=== PATIENT | female | born 1985 | race Caucasian/White ===

== ENCOUNTER 2024-11-09 09:03 | Outpatient (CLI) | payer BC, SELFPAY | END 2024-11-09 09:04 | disposition home or self-care (01) | DX: R10.13 Epigastric pain (principal) | CPT/HCPCS: 80053; 86140 ==

== ENCOUNTER 2024-11-11 01:49 | Emergency (ER) | payer BC, SELFPAY ==
--- OUTSIDE RECORDS SUMMARY | 2024-11-11 01:51 | XMS_ITS | Clinical Summary ---
Author Organization [facility] Address [address] [place] [id number] Care Team Providers Care Mineralogy Teacher Name Role Phone Pcp, No Primary Care Provider Unavailabl e Allergies Active Allergy Reactions Criticality Noted Date Comments Nickel Rash Low 02/11/2018 Medications meclizine (ANTIVERT) 25 mg tabletIndication s:Dizziness Take 1 tablet by mouth 3 times daily if needed for Vertigo. 30 tablet 02/11/2018 Active penicillin v potassium (PEN-VEE K) 500 mg tablet TAKE 1 TABLET BY MOUTH TWICE DAILY FOR 10 DAYS 11/08/2021 Active benzonatate (TESSALON) 200 mg capsuleIndicatio ns:Cough, unspecified type Take 1 Capsule (200 mg) by mouth 3 times daily if needed for Cough. 21 Capsule 11/17/2021 Active Active Problems No known active problems Family History Medical History Relation Name Comments Diabetes Mother Heart failure Mother Thyroid Disease Mother Cancer-breast Paternal Grandmother Stroke Paternal Grandmother Relation Name Status Comments Mother Paternal Grandmother Social History Tobacco Use Types Packs/Day Years Used Date Smoking Tobacco: Never Smokeless Tobacco: Never Alcohol Use Standard Drinks/Week Comments Yes 0 (1 standard drink = 0.6 oz pur e alcohol) occasionally Comments No Sex and Gender Information Value Date Recorded Sex Assigned at Not on file Legal Sex Female 5:23 AM WEEKEND CAREGIVER Gender Identity Not on file Sexual Orientation Not on file Obstetrics History Last Filed Vital Signs Vital Sign Reading Time Taken Comments Blood Pressure 118/64 11/17/2021 9:19 AM CDT Pulse 88 11/17/2021 9:19 AM CDT Temperature 36.8 C (98.2 F) 11/17/2021 9:19 AM CDT Respiratory Rate 18 11/17/2021 9:19 AM CDT Oxygen Saturation 99% 11/17/2021 9:19 AM CDT Inhaled Oxygen Concentration - - Weight 70.8 kg (156 lb) 11/17/2021 9:19 AM CDT Height 160 cm (5' 3) 03/22/2018 9:42 AM WEEKEND CAREGIVER Body Mass Index 27.63 03/22/2018 9:42 AM WEEKEND CAREGIVER Plan of Treatment Health Maintenance Due Date Last Done Comments Tetanus booster 09/28/1994 Depression screening for age 12+ 1995 HIV for age 15-65 09/28/1998 Hepatitis C screening for ag e 18-79 09/28/2001 Hepatitis B series for 19+ ( 1 of 3 - 19+ 3-dose series) 09/28/2002 Pap test for age 21-65 09/28/2004 HPV series for age 9-45 (1 - 3-dose SCDM series) 09/28/2010 BMI (ht and wt on same day) for age 18+ 03/22/2019 03/22/2018, 02/11/2018 COVID-19 vaccine series ( season) 2024 Influenza Vaccine (#1) 2024 RSV vaccine for adults or (1 - 1-dose 75+ series) 09/28/2058 Pneumococcal series for age 6-49 Aged Out No longer eligible b ased on patient's age to complete this topic Insurance [facility] Care Teams Mineralogy Teacher Relationship Specialty Start Date End Date Pcp, No . PCP - General 02/11/18
[2024-11-11 02:04] VITALS: BP 126/55; PULSE 112; RESP 18; TEMP 36.4; O2SAT 98; BMI 27.5
--- NOTE | 2024-11-11 02:31 | CRLHL7_ITS ---
For Patients: As a result of the Century Cures Act, medical imaging exams and procedure reports are released immediately into your electronic medical record. You may view this report before your referring provider. If you have questions, please contact your health care provider. Indication: Epigastric pain Technique: CT through the abdomen and pelvis following 76 mL Isovue 370 IV contrast Comparison: None Findings: Lower chest: No acute abnormality appreciated. Hepatobiliary: No significant parenchymal abnormality is appreciated. Spleen: Unremarkable. Pancreas: No acute abnormality appreciated. Adrenal glands: No acute abnormality appreciated. Kidneys: No significant parenchymal abnormality appreciated. No visualized calculi. No hydronephrosis. Bowel: No obstruction. No focal perienteric or pericolonic stranding is appreciated. The appendix is visualized and appears unremarkable. Vascular: No acute abnormality appreciated. Lymph nodes: No gross lymphadenopathy. Peritoneum: No free air. No free fluid. : No acute abnormality appreciated. Soft tissues: No acute abnormality appreciated. Bones: No acute fracture. No lytic or blastic lesion. Impression: No abnormal findings appreciated to account for patient`s reported symptoms. Please note that all CT scans at this facility use dose modulation, iterative reconstruction, and/or weight-based dosing when appropriate to reduce radiation dose to as low as reasonably achievable. Dictated by Dm Phillips MD @ 11/11/2024 3:37:47 AM (Electronically Signed)
--- NOTE | 2024-11-11 02:32 | ED_ITS ---
HPI - General Adult General Chief complaint: Abdominal Pain Stated complaint: abdominal pain Time Seen by Provider: 11/11/24 01:57 Source: patient Mode of arrival: ambulatory Limitations: no limitations History of Present Illness HPI narrative: 39-year-old female presents to the emergency department in the wee hours because of abdominal pain for the past month. It has been accompanied by loose stools. She was evaluated in urgent care mainly for cough a few days ago, started on azithromycin with normal chest x-ray. She did have some blood work taken at the time reflecting negative inflammatory markers, normal CBC. Normal liver enzymes. Patient reports that the antibiotics have cleared up the cough completely. She is feeling much better. She has also been having loose stools for the past 3 weeks. Pain is mainly in the epigastric region, radiates around to the mid back slightly. No fevers. No hematemesis. No nausea. No bloody stools. Is still eating and drinking without complication but does notice that her stools are looser with greasy foods. She has tried to avoid those with some improvement. Reports that the pain is 7/10 tonight, causing her to come to the emergency room. She put herself on Pepcid 2 days ago, taking once daily. Reports no improvement yet. No history of endoscopy or colonoscopy. No prior abdominal surgeries. Did not try taking any Tylenol or ibuprofen to help with her symptoms. Denies urinary or gynecological changes. Reports benign past medical history, no long-term health problems. No known drug allergies. No prior GI or pelvic surgeries. ROS is notable for the GI symptoms and the cough as described above, cough now relieved, otherwise benign times 12 systems. Urgent care and previous labs reviewed. Related Data Previous Rx's ?Medication ?Instructions ?Recorded azithromycin 250 mg tablet See Rx Instructions PO .COM PLEX #6 11/09/24 tabs benzonatate 200 mg capsule 200 mg PO BID-TID PRN cough #30 11/09/24 caps omeprazole 20 mg tablet,delayed 20 mg PO QDAY 14 days #14 tabs 11/09/24 release Allergies Allergy/AdvReac Type Severity Reaction Status Date / Time No Known Drug Allergies Allergy Verified 11/11/24 02:07 [facility] Social History Smoking Status: Never smoker Do you use any of these nicotine containing products: None Second hand tobacco smoke exposure: No How often do you have a drink containing alcohol: monthly or less How often do you have six or more drinks on one occasion: Never AUDIT-C Alcohol total score: 1 Non-prescribed substance use: denies use service: No Exam Const: Vital Signs, click to edit/add: Vital Signs - 24 hr 11/11/24 02:04 Temperature 97.5 F L Pulse Rate [Right Pulse Oximeter] 112 H Respiratory Rate 18 Blood Pressure [Ri ght Upper Arm] 126/55 L Pulse Oximetry 98 Oxygen Delivery Me thod Room Air Documenting provider has reviewed patient's vital signs: yes Common normals: no apparent distress and alert General appearance: cooperative and well kempt Other: Appears well. Non-toxic, no pallor. HENMT: Common normals: normocephalic Head and scalp: normocephalic Face and sinus: normal facial exam Mouth: oral and palatal mucosa normal Eye: Common normals: conjunctivae normal General eye: normal appearance of both eyes Conjunctiva: conjunctiva(e) normal Neck & C-Spine: Common normals: full ROM and no lymphadenopathy Resp: Common normals: normal respiratory effort and clear to auscultation bilaterally Effort & inspection: able to speak in complete sentences Auscultation: clear to auscultation bilaterally Cardio: Common normals: regular rate, regular rhythm, S1 normal heart sound, S2 normal heart sound and no murmurs Rate: regular rate Rhythm: regular rhythm Heart sounds: S1 normal and S2 normal GI: Common normals: Normal to inspection, nondistended, normoactive bowel sounds present, soft to palpation, no hepatosplenomegaly and no masses Palpation: soft and no hepatosplenomegaly Other: Mildly tender to epigastrium. No masses. No rebound tenderness or guarding. Extremity: Common normals: normal to inspection, normal capillary refill and no pedal edema Neuro: Common normals: moves all extremities Sensorium/orientation: alert Speech: speech normal Psych: Appearance: well kempt Attitude: engaged Activity/motor behavior: appropriate eye contact Insight: insight good Judgement: judgment good Skin: Common normals: no rashes or lesions noted General skin exam: no rashes or lesions noted Course Course ED Course: 39-year-old female with epigastric pain. Differential diagnosis including gastritis, perforated ulcer, celiac disease, H pylori, biliary dyskinesia, gallstones, pancreatitis, colitis, inflammatory bowel disease, cholecystitis, irritable bowel, amongst others. Will give omeprazole, GI cocktail, 1 hydrocodone tablet and Zofran. Obtain typical intra-abdominal labs and CT of the abdomen and pelvis. Counseled patient that in the wee hours of the night and may not be able to perform all the diagnostic tests that we would typically used to work this up. She will likely need to follow-up if findings are benign for H pylori and celiac testing as well as possibly endoscopy and or HIDA scan. Patient was understanding of this. Counseled that we will only rule out emergent things overnight and there may be primary care follow-up to fully diagnose her condition. She verbalizes understanding would like to proceed with workup. Reevaluation(s) Time of Reevaluation #1: 03:52 Reevaluation #1: Patient reports that her symptoms are quite a bit better after the GI cocktail, omeprazole and hydrocodone. We discussed her normal labs and normal CT. I suspect that this is some chronic underlying gastritis. Cannot exclude H.pylori, celiac disease, biliary dyskinesia or other similar complaints. Counseled patient of the limitations of testing that I can do in the emergency room in the middle of the night she will need to make a follow-up with a primary care provider for the rest of the workup. In the meantime, she will start omeprazole 20 mg p.o. once daily for the next 4 weeks, encouraged it 30 minutes before her evening meal. Avoid alcohol in carbonated beverages. Tylenol 650 every 4 hours as needed for pain. Maalox for symptomatic control on top of the omeprazole. Would encourage endoscopy if her symptoms have not improved in 4 weeks on omeprazole. She will need to discuss this with the primary care provider. Gallbladder ultrasound if no improvement on antacids could also be considered, especially if her symptoms start to become more postprandial. Alarm symptoms reviewed that would warrant ED presentation. She verbalizes understanding and agreement. Vital Signs Vital signs: Initial Vital Signs Temperature 97.5 F L 11/11/24 02:04 Temperature Source Temporal Artery Scan 11/11/24 02:04 Pulse Rate 112 H 11/11/24 02:04 Pulse Rhythm Regular 11/11/24 02:04 Pulse Strength 3+ Normal 11/11/24 02:04 Respiratory Rate 18 11/11/24 02:04 Blood Pressure 126/55 L 11/11/24 02:04 Blood Pressure Mean 78 11/11/24 02:04 Blood Pressure Position Sitting 11/11/24 02:04 Pulse Oximetry 98 11/11/24 02:04 Oxygen Delivery Method Room Air 11/11/24 02:04 Vital Signs Temperature 97.5 F L 11/11/24 02:04 Pulse Rate 112 H 11/11/24 02:04 Respiratory Rate 18 11/11/24 02:04 Blood Pressure 126/55 L 11/11/24 02:04 Pulse Oximetry 98 11/11/24 02:04 Oxygen Delivery Method Room Air 11/11/24 02:04 Temperature 97.5 F L 11/11/24 02:04 Pulse Rate 112 H 11/11/24 02:04 Respiratory Rate 18 11/11/24 02:04 Blood Pressure 126/55 L 11/11/24 02:04 Pulse Oximetry 98 11/11/24 02:04 Oxygen Delivery Method Room Air 11/11/24 02:04 Medications Administered Medications: Generic Name Dose Route Start Last Admin Trade Name Freq PRN Reason Stop Dose Admin Hydrocodone Bitart/Acetaminophen 1 tab 11/11/24 02:27 11/11/24 02:52 Hydrocodone-Acetamin 5-325 Mg 1 Tab PO 11/11/24 02:28 1 tab ONCE ONE Administration Lidocaine/Aluminum/Magnesium/Simeth 30 ml 11/11/24 02:33 11/11/24 02:54 Gi Cocktail (Visc Lido/Antacid) 30 Ml PO 11/11/24 02:34 30 ml ONCE ONE Administration Omeprazole 20 mg 11/11/24 02:33 11/11/24 02:52 Omeprazole [address] PO 11/11/24 02:34 20 mg ONCE ONE Administration Ondansetron HCl 4 mg 11/11/24 02:27 11/11/24 03:03 Ondansetron Odt 4 Mg Tab PO 11/11/24 02:28 4 mg ONCE ONE Administration Medical Decision Making Lab Data Lab results reviewed: Yes I reviewed the patient's lab results Lab results narrative: No significant leukocytosis, anemia, electrolyte abnormality, abnormal creatinine, pancreatitis, sign of urine infection. Reassuring labs. Labs: Lab Results 11/11/24 Range/Units 02:50 WBC 5.78 (4.50-11.00) K/uL RBC 4.49 (4.00-5.20) m/uL Hgb 13.5 (12.0-16.0) gm/dL Hct 39.2 (33.0-51.0) % MCV 87 (80-100) fL MCH 30 (26-34) pg MCHC 34 (32-36) gm/dL RDW Coeff of Giovanni 12.1 (11.5-15.5) % Plt Count 333 (140-440) K/uL Neut % (Auto) 63.3 (42.0-72.0) % Lymph % (Auto) 23.5 (20-44) % [place] % (Auto) 12.3 H (0.0-11.0) % Eos % (Auto) 0.2 (0.0-7.0) % Baso % (Auto) 0.7 (0.0-3.0) % Neut # (Auto) 3.66 (1.7-7.0) K/uL Lymph # (Auto) 1.36 (0.90-2.90) K/uL [place] # (Auto) 0.70 (0.00-0.90) K/UL Eos # (Auto) 0.01 (0.00-0.50) K/uL Baso # (Auto) 0.04 (0.00-0.30) K/uL Abs Immat Gran (auto) 0.00 (0.00-0.30) K/uL Imm/Tot Granulo (auto) 0.0 % Sodium 138 (135-149) mmol/L Potassium 3.8 (3.6-5.1) mmol/L Chloride 103 (96-114) mmol/L Carbon Dioxide 24 (20-32) mmol/L Anion Gap 11 (7-15) mEq/L BUN 13 (5-24) mg/dL Creatinine 0.8 (0.5-1.5) mg/dL Estimated Creat Clear 76.55 Estimated GFR 95 ml/min Glucose 105 (60-115) mg/dL Calcium 9.2 (8.4-10.6) mg/dL Total Bilirubin 1.1 (0.1-1.5) mg/dL AST 26 (12-35) U/L ALT 20 (4-35) U/L Alkaline Phosphatase 62 (40-150) U/L C-Reactive Protein < 0.5 L (0.5-1.0) mg/dL Total Protein 8.4 H (6.0-8.3) g/dL Albumin 4.4 (3.3-5.0) g/dL Lipase 123 (23-300) U/L Urine Color Yellow (Yellow) Urine Appearance Clear (Clear) Urine pH 6.0 (5.0-8.5) Ur Specific [place] >= 1.030 (1.000-1.030) Urine Protein Trace A (Negative) Urine Glucose (UA) Negative (Negative) Urine Ketones 2+ A (Negative) Urine Blood Negative (Negative) Urine Nitrite Negative (Negative) Urine Bilirubin 1+ A (Negative) Urine Urobilinogen 0.2 (0.2-1.0) Ur Leukocyte Esterase Negative (Negative) Urine RBC 0-2 (0-2) Urine WBC 0-2 (0-5) Ur Squamous Epith Cells Few (None-Few) Amorphous Sediment Few A (None) Urine Bacteria Moderate A (None) Urine Mucus Moderate A (None) Urine HCG, Qual Negative (Negative) Imaging Data CT scan - abdomen: Attestation: I have reviewed the pertinent imaging results. My impression: Normal CT Radiologist's impression: Impression: No abnormal findings appreciated to account for patient`s reported symptoms. Please note that all CT scans at this facility use dose modulation, iterative reconstruction, and/or weight-based dosing when appropriate to reduce radiation dose to as low as reasonably achievable. Dictated by Dm Phillips MD @ 11/11/2024 3:37:47 AM Discharge Plan Discharge Clinical Impression: Gastritis Patient Disposition: Home w/ Parent or Adult Condition: Improved Instructions: Gastritis (DC), Diet for Stomach Ulcers and Gastritis (ED) Additional Instructions: I am glad that the medicines that you were given here are helping somewhat. Your labs and CT scan are completely reassuring. This does not mean that there is nothing going on, it just means that there is nothing emergent that can be detected with our limited resources in the middle of the night. With her story, the tests that I would have recommended first-line would be blood test for H pylori, a common bacterial infection that causes chronic stomach irritation and we do typically also test for celiac disease as a part of this as well. It is not uncommon that this shows up for women in middle age rather than in their youth. I want you to start taking omeprazole 20 mg daily preferably 30 minutes before your evening meal. This is a stronger antacid than the famotidine that you have been taking. Do not get rid of the famotidine, you probably be going back to and after 4 weeks as a preventative medication. If things are not improving in 4 weeks, your primary care doctor would typically refer you for an endoscopy. At this time I am not detecting any signs of gallbladder disease, gallstones or biliary dyskinesia causing her symptoms but if her symptoms fail to improve on the and acid, an ultrasound of the gallbladder can be considered also. Remember no alcohol, no carbonated beverages. Try to avoid NSAIDs and ibuprofen but it is absolutely okay to for you to use Tylenol 1000 mg every 6 hours for pain and discomfort. For as needed symptom control management, I also recommend Maalox up to every 4 hours. You will have home workup making a follow-up with a primary care provider to discuss the blood work. But in the meantime go ahead and started the omeprazole and by some Maalox also both of which are [id number] to have on hand for symptom management. Even though it is likely temporarily making your stomach a little worse, please finish your antibiotic. Remember the should come to emergency room if you have high fever, severe persistent vomiting, lots of bloody stools or other signs of severe complication. You are cleared to return to school, work or any other typical duties. Activity Level: No Restrictions Discharge Diet: Regular Prescriptions: No Action azithromycin 250 mg tablet See Rx Instructions PO .COMPLEX Qty: 6 0RF Rx Instructions: For 250 mg dose pack: take 500 mg today (day 1), then 250 mg for 4 days (days 2-5) PO benzonatate 200 mg capsule 200 mg PO BID-TID PRN (Reason: cough) Qty: 30 0RF omeprazole 20 mg tablet,delayed release (DR/EC) 20 mg PO QDAY 14 Days Qty: 14 0RF Follow Up/Referrals: Provider,Not a Local [Primary Care Provider, Family Practice] Stand Alone Forms: [employer] Info Instructions
[2024-11-11] MEDS: HYDROCODONE-ACETAMIN 5-325 MG 1 TAB PO (02:52)
[2024-11-11] MEDS: OMEPRAZOLE 20 MG CAPSULE DR PO (02:52)
[2024-11-11 02:54] LABS: Appearance Urine Clear (Clear)
[2024-11-11] MEDS: GI COCKTAIL (VISC LIDO/ANTACID) 30 ML PO (02:54)
[2024-11-11] MEDS: ONDANSETRON ODT 4 MG TAB PO (03:03)
[2024-11-11 03:05] LABS: Ur HCG Qualitative* Negative (Negative)
[2024-11-11 03:14] LABS: Hematocrit* 39.2 % (33.0-51.0); Hemoglobin* 13.5 gm/dL (12.0-16.0); Immature Granulocytes Abs Auto 0.00 K/uL (0.00-0.30); Immature Granulocytes Pct Auto 0.0 %; Lymphocytes Absolute Auto 1.36 K/uL (0.90-2.90); Mean Corpuscular HGB Conc 34 gm/dL (32-36); Mean Corpuscular Hemoglobin 30 pg (26-34); Mean Corpuscular Volume 87 fL (80-100); RDW Coefficient of Variation % 12.1 % (11.5-15.5); Red Blood Count* 4.49 m/uL (4.00-5.20); White Blood Count* 5.78 K/uL (4.50-11.00)
[2024-11-11 03:16] LABS: Slide Review Reflex No
[2024-11-11 03:26] LABS: Albumin* 4.4 g/dL (3.3-5.0); Chloride* 103 mmol/L (96-114)
[2024-11-11 03:27] LABS: Potassium* 3.8 mmol/L (3.6-5.1); Sodium* 138 mmol/L (135-149)
[2024-11-11 03:29] LABS: Blood Urea Nitrogen* 13 mg/dL (5-24); Creatinine* 0.8 mg/dL (0.5-1.5); Est. Creatinine Clearance* 76.55; Estimated Glomerular Filt Rate 95 ml/min
[2024-11-11 03:30] LABS: Alanine Aminotransferase* 20 U/L (4-35); Alkaline Phosphatase* 62 U/L (40-150); Anion Gap 11 mEq/L (7-15); Aspartate Amino Transferase* 26 U/L (12-35); Bilirubin Total* 1.1 mg/dL (0.1-1.5); Calcium* 9.2 mg/dL (8.4-10.6); Carbon Dioxide* 24 mmol/L (20-32); Glucose* 105 mg/dL (60-115); Total Protein* 8.4 g/dL (6.0-8.3)
[2024-11-11 04:16] VITALS: BP 116/70; PULSE 68; RESP 18
== END 2024-11-11 04:19 | disposition home or self-care (01) ==
PROVIDERS: Emergency Provider Family Medicine
DX: K29.70 Gastritis, unspecified, without bleeding (principal)
CPT/HCPCS: 36415; 74177; 80053; 81001; 81025; 83690; 85025; 86140; 87086; 99284; 99285; A9270; Q9967

== ENCOUNTER 2024-12-01 11:33 | Outpatient (CLI) | payer BC, SELFPAY | END 2024-12-01 11:34 | disposition home or self-care (01) | PROVIDERS: Visit Provider Family Medicine | DX: Z00.00 Encounter for general adult medical examination without abnormal findings (principal); K13.79 Other lesions of oral mucosa; K21.9 Gastro-esophageal reflux disease without esophagitis; R53.83 Other fatigue; B37.0 Candidal stomatitis; Z11.4 Encounter for screening for human immunodeficiency virus [HIV] | CPT/HCPCS: 80053; 86703; 86706; 86803; 87340 ==

== ENCOUNTER 2024-12-02 07:11 | Outpatient (CLI) | payer BC, SELFPAY | END 2024-12-02 07:12 | disposition home or self-care (01) | PROVIDERS: Visit Provider Family Medicine | DX: K13.79 Other lesions of oral mucosa (principal); K21.9 Gastro-esophageal reflux disease without esophagitis; R53.83 Other fatigue | CPT/HCPCS: 87338 ==

== ENCOUNTER 2024-12-06 10:12 | Emergency (ER) | payer BC, SELFPAY ==
--- OUTSIDE RECORDS SUMMARY | 2024-12-06 10:15 | XMS_ITS | Clinical Summary ---
Author Organization [facility] Address [address] [place] [id number] Care Team Providers Care Informatics Educator Name Role Phone Pcp, No Primary Care [...] on file Legal Sex Female 5:23 AM CARTON LINER Gender Identity Not on file Sexual Orientation [...] 160 cm (5' 3) 03/22/2018 9:42 AM CARTON LINER Body Mass Index 27.63 03/22/2018 9:42 AM CARTON LINER Plan of Treatment Health Maintenance Due Date [...] day) for age 18+ 03/22/2019 03/22/2018, 02/11/2018 Influenza Vaccine (#1) 2024 RSV vaccine for adults or (1 - 1-dose 75+ series) 09/28/2058 Pneumococcal series for age 6-49 Aged Out No longer eligible b ased on patient's age to complete this topic Insurance [facility] Care Teams Informatics Educator Relationship Specialty Start Date End Date Pcp, No . PCP - General 02/11/18
[2024-12-06 10:26] VITALS: BP 118/80; PULSE 83; RESP 18; TEMP 36.7; O2SAT 98; BMI 25.7
--- NOTE | 2024-12-06 10:48 | ED.ABDPAIN ---
HPI - Abdominal Pain General Time Seen by Provider: 10:48 Date Seen: 12/06/24 Chief Complaint: Abdominal Pain Stated Complaint: Abdominal pain, lightheaded Time Seen by Provider: 12/06/24 10:27 Source: patient and RN notes reviewed Mode of arrival: ambulatory Limitations: no limitations History of Present Illness HPI narrative: This 39-year-old female has been having ongoing gastrointestinal issues for 2 months. She was having a follow-up CBC for outpatient lab given her white count was recently mildly low and monocytes were elevated. She just felt so weak in the car, did have some diarrhea this morning. She opted to check into the ED. she has had CT imaging on November 11 with normal laboratory workup here in the ED. She did follow up with [facility], had a negative viral pathogen panel for diarrhea. She states the GI doctor thought that this may have been initiated with SIVAKUMAR, she was seen 4 weeks after the initial symptoms. She is having episodic diarrhea, gets quite weak when she has the diarrhea. She will feel lightheaded, shaky, feel like she will pass out. Her appetite is diminished, she has had a 20 lb weight loss. She was given omeprazole, admits she is not taking it. She does have increased regurgitant symptoms, will get a burning pain up in the center of her chest. She sometimes gets some sharp stabbing pain it is just under the left breast just by the epigastric area. She did do a follow-up in clinic and then a most recent 1 on December 01, did discuss anxiety. Her mom is present with her today. There is a maternal aunt for the patient who has had gallbladder issues. Mom herself is on Zoloft. Patient admits that she is just feeling shaking anxious right now. She has not eaten really today, her mom notes she is not eating much. She does feel her appetite and oral intake is affected by her symptoms. On December 02, there is a negative stool H pylori antigen in the chart. Patient was updated on this, she seems a bit deflated that she does not have a diagnosis. MD elicited complaint: abdominal pain Related Data Previous Rx's ?Medication ?Instructions ?Recorded hydroxyzine HCl 10 mg tablet 10 - 20 mg (1 - 2 x 10 mg) PO QHS 12/01/24 #30 tabs nystatin 100,000 unit/mL oral 1 ml PO QID 2 weeks #56 mL 12/01/24 suspension Allergies Allergy/AdvReac Type Severity Reaction Status Date / Time No Known Drug Allergies Allergy Verified 12/06/24 10:42 Review of Systems Status of ROS Reports: 6 or more systems reviewed and unremarkable except as noted in History and below [facility] Social History Smoking Status: Never smoker Do you use any of these nicotine containing products: None Second hand tobacco smoke exposure: No How often do you have a drink containing alcohol: monthly or less How often do you have six or more drinks on one occasion: Never AUDIT-C Alcohol total score: 1 Non-prescribed substance use: denies use service: No Exam Const: Vital Signs, click to edit/add: Vital Signs - 24 hr 12/06/24 10:26 12/06/24 14:05 Temperature 98.1 F Pulse Rate [Pulse Oximeter] 83 77 Respiratory Rate 18 18 Blood Pressure [Ri ght Upper Arm] 118/80 111/75 Pulse Oximetry 98 98 Oxygen Delivery Me thod Room Air Room Air This 39-year-old female is alert, interactive, no apparent distress. Mood seems somewhat flat, she does seem somewhat anxious. Sclera clear, face atraumatic, speak in complete sentences. Lungs are clear, good air entry, no wheezing or crackles, no tachypnea, no accessory muscle use. CV regular rate and rhythm, no murmur, normal S1-S2. Abdomen is soft, nontender, nondistended, no organomegaly, rebound or guarding, normal bowel sounds. Documenting provider has reviewed patient's vital signs: yes Course Course ED Course: Will look at a right upper quadrant ultrasound. We did discuss possibility of gallbladder issues. We will recheck labs. If her right upper quadrant ultrasound is normal, have discussed that there still can be biliary dysfunction and HIDA scan could be considered for further workup. EGD and colonoscopy are potential options as well but do not need to happen emergently. She has had negative celiac testing as well through [facility] per report. Her H pylori was negative, she has had a recent expanded stool viral panel which was negative per report. We will recheck her labs, guide therapy accordingly. Reevaluation(s) Time of Reevaluation #1: 12:26 Reevaluation #1: Did review with patient that her ultrasound is not showing any concerning change with her gallbladder. If there is ongoing concern, HIDA scan could be done outpatient. We did review that her white count is further suppress, monocyte still remain elevated. We will see if lab can send off EBV and CMV serology. We are still waiting on some of her labs like troponin and TSH to come back. She is getting her IV fluids right now. If her work up is reassuring, will discharge to home for further outpatient follow-up. Time of Reevaluation #2: 13:57 Reevaluation #2: The thyroid blood work is going to take some time to come back given some complications with a chemistry analyzer. Patient is finishing her fluids, will discharge to home for further outpatient management. There is no emergent or life-threatening condition identified at this time. Time of Reevaluation #3: 20:35 Reevaluation #3: I have reviewed normal TSH, no further action required. Vital Signs Vital signs: Initial Vital Signs Temperature 98.1 F 12/06/24 10:26 Temperature Source Temporal Artery Scan 12/06/24 10:26 Pulse Rate 83 12/06/24 10:26 Respiratory Rate 18 12/06/24 10:26 Blood Pressure 118/80 12/06/24 10:26 Blood Pressure Mean 92 12/06/24 10:26 Blood Pressure Position Sitting 12/06/24 10:26 Pulse Oximetry 98 12/06/24 10:26 Oxygen Delivery Method Room Air 12/06/24 10:26 Vital Signs Temperature 98.1 F 12/06/24 10:26 Pulse Rate 83 12/06/24 10:26 Respiratory Rate 18 12/06/24 10:26 Blood Pressure 118/80 12/06/24 10:26 Pulse Oximetry 98 12/06/24 10:26 Oxygen Delivery Method Room Air 12/06/24 10:26 Temperature 98.1 F 12/06/24 10:26 Pulse Rate 77 12/06/24 14:05 Respiratory Rate 18 12/06/24 14:05 Blood Pressure 111/75 12/06/24 14:05 Pulse Oximetry 98 12/06/24 14:05 Oxygen Delivery Method Room Air 12/06/24 14:05 Medications Administered Medications: Discontinued Medications Generic Name Dose Route Start Last Admin Trade Name Freq PRN Reason Stop Dose Admin Sodium Chloride 1,000 mls @ 500 mls/hr 12/06/24 11:10 12/06/24 11:54 0.9 % Sodium Chloride 1000 Ml IV 12/06/24 13:09 500 mls/hr .Q2H PAT Administration MDM - Abdominal Pain Lab Data Attestation: I reviewed the patient's lab results. Labs: Lab Results 12/06/24 Range/Units 11:18 WBC 3.93 L (4.50-11.00) K/uL RBC 4.71 (4.00-5.20) m/uL Hgb 14.2 (12.0-16.0) gm/dL Hct 41.4 (33.0-51.0) % MCV 88 (80-100) fL MCH 30 (26-34) pg MCHC 34 (32-36) gm/dL RDW Coeff of Giovanni 12.8 (11.5-15.5) % Plt Count 235 (140-440) K/uL Neut % (Auto) 60.4 (42.0-72.0) % Lymph % (Auto) 25.4 (20-44) % Nance % (Auto) 13.7 H (0.0-11.0) % Eos % (Auto) 0.0 (0.0-7.0) % Baso % (Auto) 0.5 (0.0-3.0) % Neut # (Auto) 2.40 (1.7-7.0) K/uL Lymph # (Auto) 1.00 (0.90-2.90) K/uL Nance # (Auto) 0.50 (0.00-0.90) K/UL Eos # (Auto) 0.00 (0.00-0.50) K/uL Baso # (Auto) 0.00 (0.00-0.30) K/uL Abs Immat Gran (auto) 0.00 (0.00-0.30) K/uL Imm/Tot Granulo (auto) 0.0 % Sodium 140 (135-149) mmol/L Potassium 4.4 (3.6-5.1) mmol/L Chloride 104 (96-114) mmol/L Carbon Dioxide 23 (20-32) mmol/L Anion Gap 13 (7-15) mEq/L BUN 10 (5-24) mg/dL Creatinine 0.7 (0.5-1.5) mg/dL Estimated Creat Clear 87.49 Estimated GFR 111 ml/min Glucose 95 (60-115) mg/dL Lactate 1.4 (0.5-1.9) mmol/L Calcium 9.6 (8.4-10.6) mg/dL Total Bilirubin 1.4 (0.1-1.5) mg/dL AST 38 H (12-35) U/L ALT 21 (4-35) U/L Alkaline Phosphatase 54 (40-150) U/L Troponin I 0.03 (0.01-0.04) ng/mL C-Reactive Protein < 0.5 L (0.5-1.0) mg/dL Total Protein 8.9 H (6.0-8.3) g/dL Albumin 4.8 (3.3-5.0) g/dL Lipase 143 (23-300) U/L TSH 0.731 (0.270-4.200) uIU/mL Lab Acknowledgement Test Added Imaging Data US - abdomen: Attestation: I have reviewed the pertinent imaging results. Radiologist's impression: Patient: LENNY CAAL Facility:?[facility] Patient ID:?[id number] Site Patient ID:?[id number]. Site :?[id number] Study:?US-Abdomen/Pelvis RU-12/06/2024 11:50:23 AM Ordering Physician:Marina Barrera Final Report: INDICATION: COMPARISON: None. TECHNIQUE: Ultrasound abdomen complete. Real time lares scale imaging and color Doppler analysis was performed of the abdomen. FINDINGS: Liver: The liver is normal in size measuring 14 cm in length. Normal echogenicity. There is a well circumscribed, uniformly hyperechoic lesion in the left liver measuring 1.4 x 1.3 x 1.1 centimeters with imaging characteristics suggestive of a benign hepatic hemangioma. Gallbladder: No stones or sludge. No wall thickening or pericholecystic fluid. Negative sonographic Parks sign. Bile ducts: The common bile duct measures 4 mm in diameter. Pancreas: Normal where seen. Right kidney: The right kidney measures 12 cm in length. No hydronephrosis, calculus, or mass. Vascular: Normal caliber abdominal aorta. The IVC appears patent. The main portal vein is patent with normal flow direction. IMPRESSION: 1. No sonographic evidence of cholelithiasis or acute cholecystitis. 2. Likely benign hepatic hemangioma in the left hepatic lobe measuring 1.4 centimeters in greatest dimension. Dictated by Austin Salvador MD @ 12/06/2024 12:06:59 PM (Electronic Signature) ECG Data Attestation: I personally reviewed and interpreted this ECG as follows: (Normal sinus rhythm, 81 beats per minute. Rib bundle branch block.) ECG interpretation date: 12/06/24 ECG interpretation time: 11:28 Prior ECG tracings: not available for review Discharge Plan Discharge Clinical Impression: Diarrhea Qualifiers: Diarrhea type: unspecified type Qualified Code(s): R19.7 - Diarrhea, unspecified Leukopenia Qualifiers: Leukopenia type: unspecified Qualified Code(s): D72.819 - Decreased white blood cell count, unspecified Abdominal pain Qualifiers: Abdominal location: epigastric Qualified Code(s): R10.13 - Epigastric pain Fatigue Qualifiers: Fatigue type: unspecified Qualified Code(s): R53.83 - Other fatigue Patient Disposition: Home, Self-Care Condition: Stable Instructions: GERD (Gastroesophageal Reflux Disease) (ED) Additional Instructions: Need to follow up in clinic within the next week. Your white blood count can be repeated, can review the pending EBV and cm me titers, see if they are back. These typically will take about 5 days to return with results. You may need to follow up with [facility]. If you have ongoing symptoms, things like a HIDA scan to further look at the gallbladder, scopes with EGD and colonoscopy you may all be considered. If you feel you are worsening in the interim, develop new or concerning symptoms, please seek re-evaluation. There are no evidence of gallstones or inflammation of the gallbladder at this time. Would not recommend redoing CT imaging as I think it gives you undo exposure to radiation at this time. The thyroid blood work is still pending, I will certainly contact you if it is abnormal. Prescriptions: No Action nystatin 100,000 unit/mL suspension 1 ml PO QID 14 Days Qty: 56 1RF Rx Instructions: swish and spit hydroxyzine HCl 10 mg tablet 10 - 20 mg PO QHS Qty: 30 1RF Follow Up/Referrals: Provider,Not a Local [Non-Staff, Family Practice] Stand Alone Forms: MyHealth Info Instructions
--- NOTE | 2024-12-06 11:04 | CRLHL7_ITS ---
For Patients: As a result of the Century Cures Act, medical imaging exams and procedure reports are released immediately into your electronic medical record. You may view this report before your referring provider. If you have questions, please contact your health care provider. INDICATION: COMPARISON: None. TECHNIQUE: Ultrasound abdomen complete. Real time lares scale imaging and color Doppler analysis was performed of the abdomen. FINDINGS: Liver: The liver is normal in size measuring 14 cm in length. Normal echogenicity. There is a well circumscribed, uniformly hyperechoic lesion in the left liver measuring 1.4 x 1.3 x 1.1 centimeters with imaging characteristics suggestive of a benign hepatic hemangioma. Gallbladder: No stones or sludge. No wall thickening or pericholecystic fluid. Negative sonographic Parks sign. Bile ducts: The common bile duct measures 4 mm in diameter. Pancreas: Normal where seen. Right kidney: The right kidney measures 12 cm in length. No hydronephrosis, calculus, or mass. Vascular: Normal caliber abdominal aorta. The IVC appears patent. The main portal vein is patent with normal flow direction. IMPRESSION: 1. No sonographic evidence of cholelithiasis or acute cholecystitis. 2. Likely benign hepatic hemangioma in the left hepatic lobe measuring 1.4 centimeters in greatest dimension. Dictated by Austin Salvador MD @ 12/06/2024 12:06:59 PM (Electronically Signed)
[2024-12-06 11:24] LABS: Lactate* 1.4 mmol/L (0.5-1.9)
[2024-12-06 11:29] LABS: Hematocrit* 41.4 % (33.0-51.0); Hemoglobin* 14.2 gm/dL (12.0-16.0); Immature Granulocytes Abs Auto 0.00 K/uL (0.00-0.30); Immature Granulocytes Pct Auto 0.0 %; Lymphocytes Absolute Auto 1.00 K/uL (0.90-2.90); Mean Corpuscular HGB Conc 34 gm/dL (32-36); Mean Corpuscular Hemoglobin 30 pg (26-34); Mean Corpuscular Volume 88 fL (80-100); RDW Coefficient of Variation % 12.8 % (11.5-15.5); Red Blood Count* 4.71 m/uL (4.00-5.20); White Blood Count* 3.93 K/uL (4.50-11.00)
[2024-12-06 11:45] LABS: Slide Review Reflex No
[2024-12-06 11:47] LABS: Albumin* 4.8 g/dL (3.3-5.0); Chloride* 104 mmol/L (96-114); Potassium* 4.4 mmol/L (3.6-5.1); Sodium* 140 mmol/L (135-149)
[2024-12-06 11:50] LABS: Alanine Aminotransferase* 21 U/L (4-35); Anion Gap 13 mEq/L (7-15); Aspartate Amino Transferase* 38 U/L (12-35); Blood Urea Nitrogen* 10 mg/dL (5-24); Calcium* 9.6 mg/dL (8.4-10.6); Carbon Dioxide* 23 mmol/L (20-32); Creatinine* 0.7 mg/dL (0.5-1.5); Est. Creatinine Clearance* 87.49; Estimated Glomerular Filt Rate 111 ml/min; Glucose* 95 mg/dL (60-115); Total Protein* 8.9 g/dL (6.0-8.3)
[2024-12-06 12:05] LABS: Alkaline Phosphatase* 54 U/L (40-150); Bilirubin Total* 1.4 mg/dL (0.1-1.5)
[2024-12-06 14:05] VITALS: BP 111/75; PULSE 77; RESP 18; O2SAT 98
[2024-12-06 17:24] LABS: TSH With Reflex to FT4* 0.731 uIU/mL (0.270-4.200)
[2024-12-08 02:14] LABS: EBV Antibody-Early (D)Ag IgG >150.0 U/mL (<=8.9)
== END 2024-12-06 14:08 | disposition home or self-care (01) ==
PROVIDERS: Emergency Provider Family Medicine; PCP Family Medicine
DX: R19.7 Diarrhea, unspecified (principal); D72.819 Decreased white blood cell count, unspecified; R10.13 Epigastric pain; R53.83 Other fatigue
CPT/HCPCS: 36415; 76705; 80053; 83605; 83690; 84443; 84484; 85025; 86140; 86644; 86645; 86663; 93005; 99284; J7030

== ENCOUNTER 2024-12-06 21:42 | Emergency (ER) | payer BC, SELFPAY ==
[2024-12-06 21:50] VITALS: BP 118/84; PULSE 85; RESP 18; TEMP 36.6; O2SAT 97; BMI 25.7
--- NOTE | 2024-12-06 23:01 | ED_ITS ---
HPI - Chest Pain General Chief Complaint: Chest Pain Stated Complaint: extreme left chest pain Time Seen by Provider: 12/06/24 22:11 History of Present Illness HPI narrative: This 39-year-old female was seen earlier today because of pain in her left lower anterior chest over the past couple weeks. This pain is reproducible when performing certain movements. Prior to this she did have upper respiratory symptoms including a cough. She had labs and imaging done today with normal results. There was some discussion about possibility of a viral infection including Paula Bar virus. The patient returns today again because of some episodes of intense left anterior lower chest pain that was reproduced with certain movements. She is worried now that her spleen may be enlarged. She denies any nausea, vomiting, lightheadedness, shortness of breath, or diaphoresis. She does not have any exercise intolerance. Related Data Previous Rx's ?Medication ?Instructions ?Recorded hydroxyzine HCl 10 mg tablet 10 - 20 mg (1 - 2 x 10 mg ) PO QHS 12/01/24 #30 tabs nystatin 100,000 unit/mL oral 1 ml PO QID 2 weeks #56 mL 12/01/24 suspension Allergies Allergy/AdvReac Type Severity Reaction Status Date / Time No Known Drug Allergies Allergy Verified 12/06/24 10:42 Review of Systems Status of ROS Reports: 10 or more systems reviewed and unremarkable except as noted in History and below Narrative Constitutional: No fevers, no weight gain or loss. Eyes: No discharge. No vision changes. HENT: No congestion, no sore throat, no ear pain. Cardiovascular: No palpitations. Respiratory: No shortness of breath, no wheezes, no cough. Gastrointestinal: No abdominal pain, no vomiting, no diarrhea. Genitourinary: No dysuria, no hematuria. Musculoskeletal: Normal range of motion. Skin: No rashes, no pruritis. Neurological: No dizziness, weakness, sensory change, speech change. Endo/Heme/Allergies: No bruising or bleeding. No polydipsia. Pysch: no suicidality, no anxiety, no insomnia. All other systems reviewed and are negative. [facility] Social History Smoking Status: Never smoker Do you use any of these nicotine containing products: None Second hand tobacco smoke exposure: No How often do you have a drink containing alcohol: monthly or less How often do you have six or more drinks on one occasion: Never AUDIT-C Alcohol total score: 1 Non-prescribed substance use: denies use service: No Exam Narrative Exam Narrative: Constitutional: Well-developed, well-nourished, no acute distress. HEENT: Normocephalic, atraumatic. Neck: Normal range of motion. Nontender. Supple. Heart: Regular. No murmurs. Normal rate. Intact distal pulses. Lungs: Clear to auscultation. No wheezes, rhonchi, or rales. Chest discomfort is distinctly reproduced when sitting forward and with certain maneuvers. Abdomen: Normal bowel sounds. Nontender. No rebound tenderness. Genitalia: Deferred. Back: No midline tenderness. Normal range of motion. Extremities: Normal range of motion. No injury. Skin: Intact. No rash. Warm. No erythema or pallor. Neurologic: No altered sensation. No weakness. Alert and oriented. Psychiatric: No suicidality. No anxiety or depression. No insomnia. Nursing notes and vitals signs are reviewed. Const Vital Signs, click to edit/add: Vital Signs - 24 hr 12/06/24 21:50 Temperature 97.9 F Pulse Rate [Pulse Oximeter] 85 Respiratory Rate 18 Blood Pressure [Right Upper Arm] 118/84 Pulse Oximetry 97 Oxygen Delivery Method Room Air Course Vital Signs Vital signs: Initial Vital Signs Temperature 97.9 F 12/06/24 21:50 Temperature Source Temporal Artery Scan 12/06/24 21:50 Pulse Rate 85 12/06/24 21:50 Respiratory Rate 18 12/06/24 21:50 Blood Pressure 118/84 12/06/24 21:50 Blood Pressure Mean 95 12/06/24 21:50 Blood Pressure Position Sitting 12/06/24 21:50 Pulse Oximetry 97 12/06/24 21:50 Oxygen Delivery Method Room Air 12/06/24 21:50 Vital Signs Temperature 97.9 F 12/06/24 21:50 Pulse Rate 85 12/06/24 21:50 Respiratory Rate 18 12/06/24 21:50 Blood Pressure 118/84 12/06/24 21:50 Pulse Oximetry 97 12/06/24 21:50 Oxygen Delivery Method Room Air 12/06/24 21:50 Temperature 97.9 F 12/06/24 21:50 Pulse Rate 85 12/06/24 21:50 Respiratory Rate 18 12/06/24 21:50 Blood Pressure 118/84 12/06/24 21:50 Pulse Oximetry 97 12/06/24 21:50 Oxygen Delivery Method Room Air 12/06/24 21:50 MDM - Chest Pain MDM Narrative Medical decision making narrative: This patient comes in with a fair amount of anxiety about splenomegaly after a visit earlier today. She has chest pain episodes that are classic and typical for chest wall pain. She did have a thorough workup earlier today and I reviewed those plans. She is not exhibiting any worrisome signs or symptoms but clearly has distinct pain that can occur with chest wall pain. I did use bedside ultrasound to evaluate her spleen and this was very reassuring to her as it appears to be normal size. I did provide an [employer] prescription for Toradol. Discharge Plan Discharge Clinical Impression: Acute chest wall pain Patient Disposition: Home, Self-Care Condition: Stable Additional Instructions: Take medication as needed and directed. Activity as tolerated. Follow up with MD return if worsening. Prescriptions: No Action nystatin 100,000 unit/mL suspension 1 ml PO QID 14 Days Qty: 56 1RF Rx Instructions: swish and spit hydroxyzine HCl 10 mg tablet 10 - 20 mg PO QHS Qty: 30 1RF Follow Up/Referrals: Will Cristina MD [Primary Care Provider, Family Practice] Stand Alone Forms: MyHealth Info Instructions Procedures POC Ultrasound Abdomen Limited Anatomical areas examined: Spleen Indications: The patient is Worried that lower chest wall pain may be coming from an enlarged spleen. Description/ Findings: Normal-appearing spleen and left kidney. Impression: Normal exam.
== END 2024-12-06 23:17 | disposition home or self-care (01) ==
PROVIDERS: Emergency Provider Emergency Medicine Emergency Medical Services; PCP Family Medicine
DX: R07.89 Other chest pain (principal)
CPT/HCPCS: 76705; 99284

== ENCOUNTER 2024-12-09 05:29 | Emergency (ER) | payer BC, SELFPAY ==
--- OUTSIDE RECORDS SUMMARY | 2024-12-09 05:31 | XMS_ITS | Clinical Summary ---
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 PCP - General 02/11/18
--- NOTE | 2024-12-09 05:36 | ED_ITS ---
HPI - Abdominal Pain General Time Seen by Provider: 05:36 Date Seen: 12/09/24 Chief Complaint: Back Injury/Pain Stated Complaint: abdominal/back pain Time Seen by Provider: 12/09/24 05:36 Source: patient Mode of arrival: ambulatory History of Present Illness HPI narrative: Sharmila is a 39-year-old female who presents the emergency department for evaluation of abdominal pain. Patient presents tonight with her spouse, reports that she has been feeling unwell and sick for the past month. Patient reports that symptoms initially started back in the middle of October. Patient states that he went to a [employer] farm and later developed rash, and later had upset stomach. Patient reports taking Benadryl and then developing diarrhea, eventually coming ill with upper respiratory infection with fever, chills, cough, body aches, sore throat with. Patient reports ongoing cough that lasted for weeks. Patient reports that since this time she has been sick, has had weight loss, has had ongoing body aches, feeling ill with flu-like illness, and burning sensation. Patient states she presents tonight due to a burning sensation that starts in her upper abdomen and lower chest distress throughout her entire body. Reports a burning sensation has been ongoing for the past 24 hours. Per chart review patient has been seen multiple times in the emergency department as well as GI and has had extensive workup including comprehensive labs, CT imaging, ultrasound with no clear etiology of patient's symptoms. Patient had stool panel which was negative, negative H pylori, negative celiac panel. Patient reports that the only 2 test pending are CMV and EBV. Patient states she is unable to sleep due to discomfort. Related Data Home Medications ?Medication ?Instructions ?Recorded ?Confirmed omeprazole 20 mg capsule,delayed 20 mg PO DAILY 12/09/24 release Previous Rx's ?Medication ?Instructions ?Recorded hydroxyzine HCl 10 mg tablet 10 - 20 mg (1 - 2 x 10 mg ) PO QHS 12/01/24 #30 tabs nystatin 100,000 unit/mL oral 1 ml PO QID 2 weeks #56 mL 12/01/24 suspension Allergies Allergy/AdvReac Type Severity Reaction Status Date / Time No Known Drug Allergies Allergy Verified 12/09/24 06:22 Review of Systems Narrative Past medical history, past surgical history, medications, allergies, family history, and social history were reviewed with the patient. No additional pertinent items. A medically appropriate review of systems was performed with pertinent positives and negatives noted in HPI, all other systems negative. [facility] Social History Smoking Status: Never smoker Do you use any of these nicotine containing products: None Second hand tobacco smoke exposure: No How often do you have a drink containing alcohol: monthly or less How often do you have six or more drinks on one occasion: Never AUDIT-C Alcohol total score: 1 Non-prescribed substance use: denies use service: No Exam Narrative: Exam Narrative: General: Afebrile, anxious, in distress HEENT: Normocephalic, atraumatic, conjunctiva normal. Posterior pharynx with no erythema, no exudates, no swelling or asymmetry MMM Neck: non-tender, supple Cardio: regular rate. regular rhythm Resp: Normal work of breathing, no respiratory distress, lungs clear bilaterally, no wheezing, rhonchi, rales Chest/Back: no visual signs of trauma, no midline tenderness, no CVA tenderness Abdomen: soft, non distension, no tenderness, no peritoneal signs Neuro: alert and fully oriented. CN II-XII grossly intact. Grossly normal strength and sensation in all extremities. MSK: no deformities. Normal range of motion Integumentary/Skin: no rash visualized, normal color Psych: normal affect, normal behavior Const: Vital Signs, click to edit/add: Vital Signs - 24 hr 12/09/24 05:38 Temperature 98 F Pulse Rate [Pulse Oximeter] 105 H Respiratory Rate 18 Blood Pressure [Ri ght Upper Arm] 133/85 Pulse Oximetry 97 Oxygen Delivery Me thod Room Air Course Vital Signs Vital signs: Initial Vital Signs Temperature 98 F 12/09/24 05:38 Temperature Source Temporal Artery Scan 12/09/24 05:38 Pulse Rate 105 H 12/09/24 05:38 Respiratory Rate 18 12/09/24 05:38 Blood Pressure 133/85 12/09/24 05:38 Blood Pressure Mean 101 12/09/24 05:38 Blood Pressure Position Sitting 12/09/24 05:38 Pulse Oximetry 97 12/09/24 05:38 Oxygen Delivery Method Room Air 12/09/24 05:38 Vital Signs Temperature 98 F 12/09/24 05:38 Pulse Rate 105 H 12/09/24 05:38 Respiratory Rate 18 12/09/24 05:38 Blood Pressure 133/85 12/09/24 05:38 Pulse Oximetry 97 12/09/24 05:38 Oxygen Delivery Method Room Air 12/09/24 05:38 Temperature 98 F 12/09/24 05:38 Pulse Rate 105 H 12/09/24 05:38 Respiratory Rate 18 12/09/24 05:38 Blood Pressure 133/85 12/09/24 05:38 Pulse Oximetry 97 12/09/24 05:38 Oxygen Delivery Method Room Air 12/09/24 05:38 Medications Administered Medications: Discontinued Medications Generic Name Dose Route Start Last Admin Trade Name Freq PRN Reason Stop Dose Admin Diphenhydramine HCl 25 mg 12/09/24 06:20 12/09/24 06:45 Diphenhydramine 50 Mg/Ml Inj IVP 12/09/24 06:21 25 mg ONCE ONE Administration Famotidine 20 mg 12/09/24 06:20 12/09/24 06:44 Famotidine 10 Mg/Ml Inj IVP 12/09/24 06:21 20 mg ONCE ONE Administration Sodium Chloride 1,000 mls @ 1,000 mls/hr 12/09/24 06:30 12/09/24 08:32 0.9 % Sodium Chloride 1000 Ml IV 12/09/24 07:29 Infused .Q1H PAT Infusion Ketorolac Tromethamine 15 mg 12/09/24 06:20 12/09/24 06:45 Ketorolac 15 Mg/Ml Inj IVP 12/09/24 06:21 15 mg ONCE ONE Administration Lidocaine/Aluminum/Magnesium/Simeth 30 ml 12/09/24 06:20 12/09/24 06:44 Gi Cocktail (Visc Lido/Antacid) 30 Ml PO 12/09/24 06:21 30 ml ONCE ONE Administration Lorazepam 1 mg 12/09/24 08:01 12/09/24 08:07 Lorazepam 2 Mg/Ml Inj IVP 12/09/24 08:02 1 mg ONCE ONE Administration MDM - Abdominal Pain MDM Narrative Medical decision making narrative: Sharmila is a 39-year-old female who presents the emergency department for evaluation of abdominal pain. Upon arrival patient is nontoxic appearing, afebrile, in distress. Patient is slightly tachycardic with heart rate 105, blood pressure 133/85, oxygen 97% on room air. Differential diagnosis includes but is not limited to viral illness versus gastritis versus gastroenteritis versus peptic ulcer disease versus pancreatitis versus cholecystitis versus colitis versus less likely ACS versus cystitis among others. Per chart review patient is EBV came back positive which could explain patient's symptoms. I also reviewed patient's recent laboratory testing as well as ultrasound, CT imaging. At this time will start for repeat comprehensive labs, EKG. Patient was treated with GI cocktail for burning sensation along with IV fluid bolus, Pepcid, Toradol, Benadryl for symptomatic support. I reviewed EKG which demonstrates normal sinus rhythm with a ventricular rate of 83 beats per minute, normal axis, no acute ischemic change. Comprehensive labs remarkable for white blood cell count 2.88 (prior 2.93). Hem oglobin 14.4, monocytes 18.1 (prior 13.7), no acute metabolic or electrolyte abnormality, no significant transaminitis, troponin 0.03 (similar to prior) EKG with no acute ischemic change, normal lipase. Urinalysis with no evidence of acute infection. Per chart review patient is EBV came back significantly elevated. I reviewed patient's most recent imaging, no evidence of significant lymphadenopathy, patient does report symptoms back in October. Patient's symptoms could be related to EBV, on re-evaluation patient is still unable to sleep, extremely anxious, I discussed results with patient and spouse. At this time no emergent indication for repeat CT imaging at this time. I do strongly encourage her to follow up outpatient with her primary care provider to appointment for Friday. Also would consider sending her back to GI given her symptoms of ongoing burning sensation for possible endoscopy as well as started her on and antiacid. Patient reports being prescribed omeprazole in the past however did not start taking it. Patient is willing to start this medication. On prior CT imaging no significant lymphadenopathy however given ongoing symptoms, elevated EBV levels, would continue close outpatient follow-up and consider biopsy if no improvement of symptoms. At this time no emergent indication for hospitalization. Patient was given a dose of Ativan the emergency department with significant improvement of symptoms and feels comfortable discharge home. Plan for discharge with continued supportive care, close outpatient follow-up, strict return precautions discussed. Patient and understand agrees the plan. Medical Records Attestation: I reviewed the patient's medical records. Lab Data Attestation: I reviewed the patient's lab results. Labs: Lab Results 12/09/24 12/09/24 Range/Units 06:10 06:38 WBC 2.88 L (4.50-11.00) K/uL RBC 4.76 (4.00-5.20) m/uL Hgb 14.4 (12.0-16.0) gm/dL Hct 41.7 (33.0-51.0) % MCV 88 (80-100) fL MCH 30 (26-34) pg MCHC 35 (32-36) gm/dL RDW Coeff of Giovanni 12.7 (11.5-15.5) % Plt Count 234 (140-440) K/uL Neut % (Auto) 47.9 (42.0-72.0) % Lymph % (Auto) 32.6 (20-44) % Mcpherson % (Auto) 18.1 H (0.0-11.0) % Eos % (Auto) 0.7 (0.0-7.0) % Baso % (Auto) 0.7 (0.0-3.0) % Neut # (Auto) 1.40 L (1.7-7.0) K/uL Lymph # (Auto) 0.90 (0.90-2.90) K/uL Mcpherson # (Auto) 0.50 (0.00-0.90) K/UL Eos # (Auto) 0.00 (0.00-0.50) K/uL Baso # (Auto) 0.00 (0.00-0.30) K/uL Abs Immat Gran (auto) 0.00 (0.00-0.30) K/uL Imm/Tot Granulo (auto) 0.0 % Sodium 141 (135-149) mmol/L Potassium 4.3 (3.6-5.1) mmol/L Chloride 105 (96-114) mmol/L Carbon Dioxide 23 (20-32) mmol/L Anion Gap 13 (7-15) mEq/L BUN 8 (5-24) mg/dL Creatinine 0.7 (0.5-1.5) mg/dL Estimated Creat Clear 87.49 Estimated GFR 111 ml/min Glucose 96 (60-115) mg/dL Lactate 1.0 (0.5-1.9) mmol/L Calcium 9.5 (8.4-10.6) mg/dL Total Bilirubin 1.8 H (0.1-1.5) mg/dL AST 42 H (12-35) U/L ALT 22 (4-35) U/L Alkaline Phosphatase 50 (40-150) U/L Troponin I 0.03 (0.01-0.04) ng/mL Total Protein 9.1 H (6.0-8.3) g/dL Albumin 4.9 (3.3-5.0) g/dL Lipase 113 (23-300) U/L Urine Color Yellow (Yellow) Urine Appearance Clear (Clear) Urine pH 6.5 (5.0-8.5) Ur Specific [place] 1.010 (1.000-1.030) Urine Protein Negative (Negative) Urine Glucose (UA) Negative (Negative) Urine Ketones 3+ A (Negative) Urine Blood Trace-intact A (Negative) Urine Nitrite Negative (Negative) Urine Bilirubin Negative (Negative) Urine Urobilinogen 0.2 (0.2-1.0) Ur Leukocyte Esterase Negative (Negative) Urine RBC 0-2 (0-2) Urine WBC 0-2 (0-5) Ur Squamous Epith Cells None (None-Few) Urine Bacteria None (None) Discharge Plan Discharge Clinical Impression: Abdominal pain Patient Disposition: Home, Self-Care Condition: Improved Additional Instructions: Please follow-up with your primary care provider a currently scheduled appointment on Friday. We also recommend following up with GI for possible further evaluation and endoscopy. Please continue your medications, please rest, drink plenty of fluids. Alternate Tylenol and ibuprofen as needed for pain. Return to the emergency department if you develop persistent high fever, severe pain, persistent vomiting, worsening symptoms. It was a pleasure taking care of you today. We hope you feel better soon. Prescriptions: No Action nystatin 100,000 unit/mL suspension 1 ml PO QID 14 Days Qty: 56 1RF Rx Instructions: swish and spit hydroxyzine HCl 10 mg tablet 10 - 20 mg PO QHS Qty: 30 1RF omeprazole 20 mg capsule,delayed release(DR/EC) 20 mg PO DAILY Follow Up/Referrals: Will Cristina MD [Primary Care Provider, Family Practice] Stand Alone Forms: [facility] [place] Info Instructions
[2024-12-09 05:38] VITALS: BP 133/85; PULSE 105; RESP 18; TEMP 36.6; O2SAT 97; BMI 25.2
[2024-12-09 06:38] LABS: Appearance Urine Clear (Clear)
[2024-12-09 06:42] LABS: Lactate* 1.0 mmol/L (0.5-1.9)
[2024-12-09] MEDS: GI COCKTAIL (VISC LIDO/ANTACID) 30 ML PO (06:44)
[2024-12-09] MEDS: FAMOTIDINE 10 MG/ML inj 20 MG IVP (06:44)
[2024-12-09 06:49] LABS: Hematocrit* 41.7 % (33.0-51.0); Hemoglobin* 14.4 gm/dL (12.0-16.0); Immature Granulocytes Abs Auto 0.00 K/uL (0.00-0.30); Immature Granulocytes Pct Auto 0.0 %; Mean Corpuscular HGB Conc 35 gm/dL (32-36); Mean Corpuscular Hemoglobin 30 pg (26-34); Mean Corpuscular Volume 88 fL (80-100); RDW Coefficient of Variation % 12.7 % (11.5-15.5); Red Blood Count* 4.76 m/uL (4.00-5.20); White Blood Count* 2.88 K/uL (4.50-11.00)
[2024-12-09 07:00] LABS: Lymphocytes Absolute Auto 0.90 K/uL (0.90-2.90); Slide Review Reflex No
[2024-12-09 07:04] LABS: Albumin* 4.9 g/dL (3.3-5.0); Chloride* 105 mmol/L (96-114); Potassium* 4.3 mmol/L (3.6-5.1); Sodium* 141 mmol/L (135-149)
[2024-12-09 07:06] LABS: Blood Urea Nitrogen* 8 mg/dL (5-24); Creatinine* 0.7 mg/dL (0.5-1.5); Est. Creatinine Clearance* 87.49; Estimated Glomerular Filt Rate 111 ml/min
[2024-12-09 07:07] LABS: Alanine Aminotransferase* 22 U/L (4-35); Alkaline Phosphatase* 50 U/L (40-150); Anion Gap 13 mEq/L (7-15); Aspartate Amino Transferase* 42 U/L (12-35); Bilirubin Total* 1.8 mg/dL (0.1-1.5); Calcium* 9.5 mg/dL (8.4-10.6); Carbon Dioxide* 23 mmol/L (20-32); Glucose* 96 mg/dL (60-115); Total Protein* 9.1 g/dL (6.0-8.3)
== END 2024-12-09 08:38 | disposition home or self-care (01) ==
PROVIDERS: Emergency Provider Emergency Medicine; PCP Family Medicine
DX: R10.9 Unspecified abdominal pain (principal)
CPT/HCPCS: 36415; 80053; 81001; 83605; 83690; 84484; 85025; 93005; 96374; 96375; 99284; 99285; A9270; J1200; J1308; J1885; J2060; J7030

== ENCOUNTER 2024-12-10 10:00 | Outpatient (CLI) | payer BC, SELFPAY | END 2024-12-10 10:01 | disposition home or self-care (01) | LOC: NFLDREF 12-13 18:29 | PROVIDERS: PCP Family Medicine; Referring Provider Family Medicine; Visit Provider Family Medicine | DX: B37.0 Candidal stomatitis (principal); R53.83 Other fatigue; D72.819 Decreased white blood cell count, unspecified | CPT/HCPCS: 82550; 85025; 85651; 86038; 86140; 86200; 86431; 86480; 86618 ==